=== PATIENT | female | born 1980 | race Hispanic/Latino ===

== ENCOUNTER → 2016-09-26 | Outpatient (CLI) | payer OTHER ==
--- NOTE | 2016-09-29 12:47 | DI ---
CT SOFT TISSUE NECK W/[facility],09/26/2016 3:04 PM: Clinical History: History of parotid cancer. Previous Exam: None at this facility. Findings: Multiple helically acquired CT images are obtained through the neck with and without intravenous admi nistration of 75 cc of Isovue 300, and demonstrate clear lungs. The base of the skull is unremarkable. The parapharyngeal fat is normal and symmetric. There is some scarring involving the skin overlying the right parotid gland. There is no evidence of sialolith. There is no lymphadenopathy. The bony structures are unremarkable. The thyroid is also unremarkable. There is no abnormally enhancing lesion within the parotid glands. The carotid arteries are normal. The vertebral arteries are also normal. The lung apices are clear. V isualized portions of the [place] are unremarkable. The intraorbital structures are unremark able. Impression: No evidence of parotid mass.
== END ==
LOC: CT 11:05
PROVIDERS: ATTEND Family Medicine
DX: Z85.89 Personal history of malignant neoplasm of other organs and systems (principal)
CPT/HCPCS: 70492